=== PATIENT | male | born 1975 | race African-American/Black ===

== ENCOUNTER 2024-09-15 02:36 | Emergency (ER) | payer BC, SELFPAY ==
[2024-09-15 02:39] VITALS: BP 134/73
== END 2024-09-15 03:18 ==
LOC: EMR 02:36
DX: S69.91XA Unspecified injury of right wrist, hand and finger(s), initial encounter (principal); Z53.21 Procedure and treatment not carried out due to patient leaving prior to being seen by health care provider
CPT/HCPCS: 73110

== ENCOUNTER 2024-09-15 04:44 | Emergency (ER) | payer BC, SELFPAY ==
[2024-09-15 04:48] VITALS: BP 142/76
[2024-09-15 06:15] VITALS: BP 130/70; BMI 27.3
--- NOTE | 2024-09-15 06:42 | ED.GENMED ---
History of Present Illness
General
Chief Complaint: Musculo-Skeletal Complaint
Time Seen by Provider: 09/15/24 06:11
History of Present Illness
History of Present Illness:
48-year-old male presenting to the emergency department for right wrist pain. Patient reports last evening he was on his electric skateboard and fell forward, braced his fall with his right hand and wrist. He has since had pain with range of
motion. Also struck his shoulder with abrasion. Denies significant pain. Denies any head injury or loss of consciousness or additional acute injuries. He has been taking meloxicam for pain. Denies additional acute medical complaints
Phy Exam
Physical Exam
Physical Exam:
General: Well-appearing, no clinical signs of dehydration, nontoxic and in no acute distress
HEENT: protecting airway
Neck: appears supple
CV: Normal heart rate
Resp: No accessory muscle use, no increased work of breathing
Abd: No distention
Extremities: No deformities, no swelling. Range of motion to the wrist is grossly intact with generalized tenderness, no focal tenderness. Distal sensation and pulses intact. Abrasion to the superior aspect of the right shoulder with no active
bleeding. Range of motion intact. Noted for
Neuro: alert, no focal neurologic deficit
: deferred
Rectal: deferred
Psych: Normal affect
Skin: Intact
Course
Vital Signs
Initial and Last Documented VS:
Initial Vital Signs
Temp Pulse Resp BP Pulse Ox
98.2 F 71 18 142/76 98
09/15/24 04:48 09/15/24 04:48 09/15/24 04:48 09/15/24 04:48 09/15/24 04:48
Last Documented Vital Signs
Temp Pulse Resp BP Pulse Ox
98.2 F 71 18 130/70 96
09/15/24 04:48 09/15/24 04:48 09/15/24 04:48 09/15/24 06:15 09/15/24 06:45
MDM/Problems Addressed
MDM/Problems Addressed:
48-year-old male presenting to the emergency department for right wrist pain after fall off skateboard. Vital signs are normal
On exam patient resting comfortably, no acute distress or discomfort. Benign examination of the right wrist with no deformity, no swelling. Range of motion grossly intact. No erythema or warmth or infectious concerns. No neurovascular
compromise. X-ray obtained without obvious fracture or malalignment. Patient placed in a splint for comfort. Otherwise feel stable for discharge with continued outpatient supportive therapy. Return precautions discussed and patient verbalized
understanding
*Pulse Oximetry
SaO2: 96
Oxygen Mode of Delivery: Room air
Patient hypoxic: no
*Critical Care Note
Total Time (30-74mins, 75-104mins- exclusive of procedures): Not Applicable
ED Attending Note
-
Portions of this chart may have been created with voice recognition software.� Occasional wrong word or��sound alike� substitutions may have occurred due to the inherent limitations of voice recognition software.
Discharge Plan
Departure
Patient Disposition: Home (Routine Discharge)
Date of Disposition: 09/15/24
Time of Disposition: 06:46
Patient with high blood pressure during this ER visit?: No
Condition: Good
Discharge Problem:
Right wrist sprain
Instructions: Sprain (DC)
Referrals:
UNKNOWN - PT DOES,NOT KNOW [Family Provider]
Activity Restrictions/Additional Instructions:
You were seen in the emergency department for fall and right wrist pain
You had an x-ray that did not show any evidence of a fracture broken bone. You were placed in a splint. Please follow-up with your doctor and continue to take Tylenol or Motrin as needed for pain
Return to the emergency department for any worsening of your symptoms, or any development of chest pain, difficulty breathing, abdominal pain with persistent vomiting and inability to tolerate food or liquid by mouth (concern for dehydration),
weakness, headache or confusion, fever greater than 100.4, or any additional symptoms that are concerning to you.
Thank you for choosing [facility].
Interventions
Interventions:
*Risk Screen - Suicide Last Done: 09/15/24 04:50
*General Assessment Last Done: 09/15/24 04:50
*Neglect/Abuse Screening Last Done: 09/15/24 04:50
*ED- Fall Risk Assessment Last Done: 09/15/24 04:50
*ED COVID-19 Vaccine History Last Done: 09/15/24 04:50
ED-Musculoskeletal Assessment Last Done: 09/15/24 06:16
Discharge Date and Time
Print Language: UKRAINIAN
== END 2024-09-15 07:09 | disposition home or self-care (01) ==
LOC: EMR 04:44
PROVIDERS: EMERGENCY PHYSICIAN Student in an Organized Health Care Education/Training Program
DX: S63.501A Unspecified sprain of right wrist, initial encounter (principal); S40.211A Abrasion of right shoulder, initial encounter; V00.131A Fall from skateboard, initial encounter; Y93.51 Activity, roller skating (inline) and skateboarding; Z88.6 Allergy status to analgesic agent
CPT/HCPCS: 99282